=== PATIENT | male | born 1990 | race Caucasian/White ===

== ENCOUNTER 2018-02-11 14:09 | Emergency (ER) | payer BC ==
[~2018-02-11] VITALS: Ht 172.7 cm; Wt 86.2 kg
--- NOTE | 2018-02-11 16:18 | NUR ---
Patient discharged to home in stable conditon. Written and verbal after care instructions given. Patient verbalizes understanding of instructions.
== END 2018-02-11 16:19 | disposition home or self-care (01) ==
LOC: ER 14:09
DX: S82.61XA Displaced fracture of lateral malleolus of right fibula, initial encounter for closed fracture (principal); F17.200 Nicotine dependence, unspecified, uncomplicated; X50.1XXA Overexertion from prolonged static or awkward postures, initial encounter; Y93.89 Activity, other specified; Y92.89 Other specified places as the place of occurrence of the external cause; Y99.8 Other external cause status
CPT/HCPCS: 73590; 73610; A4663

== ENCOUNTER 2019-04-20 12:23 | Emergency (ER) | payer BC ==
[~2019-04-20] VITALS: Ht 172.7 cm; Wt 81.6 kg
--- NOTE | 2019-04-20 12:40 | NUR ---
Pt.was seen by .
[2019-04-20] MEDS ORDERED: TETRACAINE HCL 0.5% OPHT DROP 2 ML BOTTLE OP ONE (12:45)
[2019-04-20] MEDS ORDERED: FLUORESCEIN SODIUM 1 MG STRIP OP ONE (12:45)
[2019-04-20] MEDS ORDERED: TETRACAINE HCL 0.5% OPHT DROP 2 ML BOTTLE ONE (12:51)
[2019-04-20] MEDS ORDERED: FLUORESCEIN SODIUM 1 MG STRIP ONE ×2 (12:51→13:03)
--- NOTE | 2019-04-20 12:51 | NUR ---
Irrigation of eyes done.
[2019-04-20] MEDS ORDERED: IBUPROFEN 800 MG TABLET PO ONE (13:15)
[2019-04-20] MEDS ORDERED: ACETAMINOPHEN ES 500 MG TABLET PO ONE (13:15)
[2019-04-20] MEDS ORDERED: IBUPROFEN 800 MG TABLET ONE (13:20)
[2019-04-20] MEDS ORDERED: ACETAMINOPHEN ES 500 MG TABLET ONE (13:20)
[2019-04-20 13:23] VITALS: BP 106/68
== END 2019-04-20 13:29 | disposition home or self-care (01) ==
LOC: ER 12:23
DX: H10.213 Acute toxic conjunctivitis, bilateral (principal)
CPT/HCPCS: A4663; A9150